=== PATIENT | male | born 1935 | race Caucasian/White ===

== ENCOUNTER 2020-03-25 22:48 | Emergency (ER) | payer OTHER, MEDICAID ==
[~2020-03-25] VITALS: Ht 165.1 cm; Wt 66.7 kg
[2020-03-25 22:58] VITALS: BP_SYST 155
[2020-03-26 01:28] VITALS: BP_SYST 108
== END 2020-03-26 01:28 | disposition home or self-care (01) ==
LOC: SED 22:48
DX: S01.112A Laceration without foreign body of left eyelid and periocular area, initial encounter (principal); S51.811A Laceration without foreign body of right forearm, initial encounter; S05.12XA Contusion of eyeball and orbital tissues, left eye, initial encounter; W18.39XA Other fall on same level, initial encounter; Y93.89 Activity, other specified; Y92.89 Other specified places as the place of occurrence of the external cause; Y99.8 Other external cause status
CPT/HCPCS: 99283